=== PATIENT | male | born 1965 | race Caucasian/White ===

== ENCOUNTER 2018-02-27 03:36 | Observation (INO) | payer SELFPAY ==
[2018-02-27] MEDS ORDERED: methylPREDNISolone Sod Succ/PF 125 MG/2 ML VIAL ONE (04:48)
[2018-02-27 04:54] LABS: CKMB 1.2 ng/mL (0-6.6); Troponin I Less than 0.010 ng/mL (< 0.028)
[2018-02-27] MEDS ORDERED: Albuterol Sulfate 2.5 mg/3 ml Neb ONE ×2 (05:00)
[2018-02-27 06:40] VITALS: BMI 25.7
[2018-02-27] MEDS ORDERED: Calcium Carbonate 500 MG ChewTAB PO PRN (07:16)
[2018-02-27] MEDS ORDERED: Senokot 8.6 MG TAB PO PRN (07:16)
[2018-02-27] MEDS ORDERED: Milk Of Magnesia 30 ML UDCUP PO PRN (07:16)
[2018-02-27] MEDS ORDERED: Acetaminophen 325 MG TAB PO PRN (07:16)
[2018-02-27] MEDS ORDERED: Nitroglycerin 0.4 MG TAB (25 Tab Bottle) PO PRN (07:16)
[2018-02-27 08:01] LABS: Troponin I Less than 0.010 ng/mL (< 0.028)
[2018-02-27] MEDS ORDERED: Amlodipine 5 MG TAB PO SCH (09:00)
[2018-02-27] MEDS ORDERED: Aspirin 325 MG TAB PO SCH (09:00)
[2018-02-27] MEDS ORDERED: Regadenoson 0.4 MG/5 ML SYRINGE ONE (10:38)
[2018-02-27 12:16] VITALS: TEMP 97.3
--- NOTE | 2018-02-27 12:49 | NM ---
MYOCARDIAL PERFUSION EVALUATION: INDICATION: History of chest pain. RADIOPHARMACEUTICAL: 28.3 mCi Technetium 99m sestamibi IV with stress and 9 mCi Technetium 99m sestamibi IV with rest. FINDINGS: No reversible myocardial perfusion defect is evident when comparing the rest and stress images. Ther e is normal wall motion and thickening. The estimated LVEF is 82%. IMPRESSION: 1. Normal myocardial perfusion evaluation. 2. No scintigraphic evidence to suggest reversible myocardial ischemia. POS: LUIS ENRIQUE
[2018-02-27 13:36] VITALS: BP 135/82
--- NOTE | 2018-02-27 14:19 | SS ---
PRIMARY CARE PHYSICIAN: Sheri in [place]. REASON FOR ADMISSION: Chest pain. DATE OF ADMISSION: 02/27/2018 at 4:45 a.m. DATE OF DISCHARGE: 02/27/2018 at 1:30 p.m. REASON FOR ADMISSION: Chest pain. HISTORY OF PRESENT ILLNESS: The patient is a 52-year-old male, who has history of hypertension as we ll as tobacco abuse disorder and alcohol abuse, who initially went to [facility] for acu te onset of chest pain. The patient was at home, he was about to go to bed and before going bed, he was having chest pain, which was across the chest associated with shortness of breath. He was also h aving associated cough. He denies any hemoptysis. He denies any pleuritic chest pain. He denies an y fever, chills, cough. He reports that during daytime, he was at [employer] and he was drinking alcohol a nd he also smoked and he ate because after that he was feeling a little bit gassy in his stomach and that precipitated his chest discomfort. The patient was given sublingual nitroglycerin that also hel ped his pain. The patient was given Toradol at the same time as well [facility] and he was also given aspirin and after that his chest discomfort was significantly improved, but he was feeling mild soreness. He denies any vomiting. He denies any palpitation. He denies an y syncope. He denies any exertion related chest pain, palpitation or shortness of breath in the past . He never had this type of problem in past. At [facility], his routine blood tests in cluding cardiac enzyme are negative. His EKG was normal and subsequently he was sent to our emergenc y room for rule out ACS. Patient was admitted to telemetry floor for observation. We did serial cardiac enzyme that remained negative. Telemetry remained unremarkable. The patient remained chest pain free. We did a stress t est today that came back negative. The patient is currently asymptomatic. PAST MEDICAL HISTORY: Hypertension. PAST SURGICAL HISTORY: Reviewed and negative. PAST PSYCHIATRIC HISTORY: Reviewed and negative. SOCIAL HISTORY: The patient is . [place] in [place]. He smokes 1 pack per day. He abus es marijuana periodically. He drinks alcohol socially. FAMILY HISTORY: Heart disease runs among several family members. No family history of cancer or str balbir. EMERGENCY ROOM COURSE: Patient was given IV fluid 1 liter, Toradol 10 mg, nitroglycerin 0.4 mg, and aspirin 325 mg. Patient was given Solu-Medrol 125 mg, and albuterol inhalation in our emergency room . ALLERGIES: PENICILLIN. CURRENT HOME MEDICATION: Amlodipine 10 mg p.o. daily. REVIEW OF SYSTEMS: The following complete review of systems was negative, unless otherwise mentioned in the HPI or below: Constitutional: Weight loss or gain, ability to conduct usual activities. Skin: Rash, itching. Eyes: Double vision, pain. ENT/Mouth: Nose bleeding, neck stiffness, pain, tenderness. Cardiovascular: Palpitations, dyspnea on exertion, orthopnea. Respiratory: Shortness of breath, wheezing, cough, hemoptysis, fever or night sweats. Gastrointestinal: Poor appetite, abdominal pain, heartburn, nausea, vomiting, constipation, or diarr hea. Genitourinary: Urgency, frequency, dysuria, nocturia. Musculoskeletal: Pain, swelling. Neurologic/Psychiatric: Anxiety, depression. Allergy/Immunologic: Skin rash, bleeding tendency. Please see my HPI for pertinent positive and negative. All other review of systems reviewed and nega tive except as mentioned in the HPI. PHYSICAL EXAMINATION: VITAL SIGNS: On arrival, blood pressure 128/90, pulse 82, respiratory rate 18, temperature 97.9, sat uration 98% on room air, weight 77.1 kilograms. GENERAL: The patient is currently alert, oriented x3, in no obvious acute distress. HEAD: Normocephalic, atraumatic. EYES: Pupils round, reactive to light. Extraocular muscle intact. ENT: Oropharynx within normal limits. Moist mucous membranes. No oral lesion, no pharyngeal erythe ma, no exudate. NECK: Supple, no JVD, no thyromegaly, no carotid bruit. LUNGS: Based on my assessment, the patient does not have any wheezing, which was present [facility], but currently patient does not have any wheezing, no rales, no accessory muscles of respi ration in use. CARDIAC: S1 and S2 regular. No murmur, no gallop, no rub. ABDOMEN: Soft, bowel sounds present, nontender, nondistended. No organomegaly, no mass, no suprapub ic tenderness. BACK: Unremarkable. No CVA tenderness. EXTREMITIES: Upper extremity passive movement of all joints are normal. Lower extremity, no edema, no calf tenderness. Good distal pulsation. SKIN: No skin rash. HEMATOLOGIC: No lymphadenopathy. PSYCHIATRIC: Normal affect. SIGNIFICANT LABORATORY DATA: CBC: WBC 12.2, hemoglobin 15.9, platelet 218. BMP shows sodium 141, p otassium 3.9, chloride 108, carbon dioxide 22, BUN 10, creatinine 1.44, glucose 105, calcium 9.8. LF T: AST 21, ALT 41, alkaline phosphatase is 109, albumin 4.8, total protein 7.9, lipase 24. Cardiac enzymes negative x3. BNP less than 10. Chest x-ray based on my review, no acute cardiopulmonary process. Stress test reported as no evidenc e of reversible ischemia. IMPRESSION: Acute chest pain. Patient's chest pain description is most likely related with a GI grace ology given symptoms started after drinking alcohol earlier and then pickle food and he was having bu rping sensation as well as another possibility is that patient has extensive smoking history and bron chospasm might have contributed to his chest pain. Currently, the patient is completely asymptomatic . We have completely ruled out cardiac etiology with negative cardiac enzymes x3. Telemetry normal. BNP normal. Stress test is negative. The patient is given healthy lifestyle measure discussion I provided. Patient does avoid smoking and to avoid alcohol abuse. We are going to prescribe him Pepc id 20 mg p.o. b.i.d. and Ecotrin 81 mg p.o. daily given his risk factors. 2. Hypertension. The patient will continue his amlodipine 10 mg p.o. daily. 3. Tobacco abuse disorder. Smoking cessation counseling given. Healthy lifestyle measures discusse d with the patient. 4. Alcohol abuse. Patient is given counseling to avoid alcohol product. 5. Deep venous thrombosis prophylaxis not needed because we are expecting discharge within 24 hours. 6. Gastrointestinal prophylaxis, Pepcid 20 mg p.o. b.i.d. CODE STATUS: Patient is FULL CODE. The patient's is surrogate decision maker. Disposition plan today. DATE OF ADMISSION: 02/27/2018 DATE OF DISCHARGE: 02/27/2018 DISCHARGE DISPOSITION: Home. PRIMARY DISCHARGE DIAGNOSES: Chest pain, ruled out acute coronary syndrome, suspecting from gastroes ophageal reflux disease/bronchospasm, resolved. SECONDARY DISCHARGE DIAGNOSES: Hypertension, tobacco abuse disorder, alcohol abuse. PRIMARY PROCEDURE/OPERATION: None. RADIOLOGICAL INVESTIGATION: Chest x-ray, normal. SIGNIFICANT LABORATORY DATA: Please see my above laboratory finding. DISCHARGE MEDICATION: Amlodipine 10 mg p.o. daily, Pepcid 20 mg p.o. b.i.d., Ecotrin 81 mg p.o. lor y. CONTRAINDICATIONS: None. CODE STATUS: FULL CODE. INPATIENT BARREL FILLER: None. ALLERGIES: PENICILLIN. DISCHARGE PLAN: Post hospital, the patient is instructed to follow up with primary care physician in 1 week. HOSPITAL COURSE: Please see my HPI for further details. The patient was transferred from [facility] for chest pain. We have completely excluded cardiac etiology with negative cardiac enz ymes x3 monitor normal and negative stress test. Patient is also asymptomatic. We are suspecting hi s chest discomfort from gastroesophageal reflux disease versus bronchospasm. The patient is given co unseling to avoid smoking and alcohol abuse. The patient will continue all his previous medication o n top of Pepcid and Ecotrin was also advised. The patient is completely asymptomatic. The patient i s medically stable for discharge. The patient was admitted and discharged on the same day.
== END 2018-02-27 14:15 | disposition home or self-care (01) ==
LOC: ERS 03:36 → 2SW 04:45
PROVIDERS: ADMIT Hospitalist; ATTEND Hospitalist
DX: R07.89 Other chest pain (principal); R06.02 Shortness of breath; I10 Essential (primary) hypertension; F17.210 Nicotine dependence, cigarettes, uncomplicated; F10.10 Alcohol abuse, uncomplicated; F12.10 Cannabis abuse, uncomplicated; Z79.899 Other long term (current) drug therapy; Z88.0 Allergy status to penicillin
CPT/HCPCS: 36415; 78452; 93005; 93017; 96374; A9500; G0378; J2785; J2930; J7611

== ENCOUNTER 2024-02-03 10:37 | Outpatient (CLI) | payer OTHER | END 2024-02-03 10:38 | disposition home or self-care (01) | LOC: BICCT 10:37 | PROVIDERS: ATTEND Registered Nurse Hospice | DX: J98.4 Other disorders of lung (principal); I25.10 Atherosclerotic heart disease of native coronary artery without angina pectoris | CPT/HCPCS: 71260; 82565 ==